=== PATIENT | female | born 1960 | race Caucasian/White ===

== ENCOUNTER 2018-04-06 09:26 | Emergency (ER) | payer BC ==
[~2018-04-06] VITALS: Ht 162.6 cm; Wt 87.8 kg
[~2018-04-06 09:26] MED LIST: MAXALT10 MG PO; NATURE-THROI81.25 MG PO; PROGESTERONE100 MG PO; RIZATRIPTAN10 MG PO; TREXIMET 85-1 TABLET
[2018-04-06 10:16] LABS: HEMOGLOBIN 13.6 G/DL (11.9-15.5); MCH 29.1 PG (29.0-34.0); MCV 85.5 FL (83-99); PLATELET COUNT 273 K/uL (156-360); RBC DIS.WIDTH-CV 12.8 % (11.8-14.6); RBC DIS.WIDTH-SD 39.8 % (39-53); RED BLOOD COUNT 4.68 M/uL (3.80-5.20); WHITE BLOOD COUNT 3.8 K/uL (4.1-10.2)
[2018-04-06 10:24] LABS: CHLORIDE 106 mEq/L (99-109); POTASSIUM 4.5 mEq/L (3.7-5.4); SODIUM 142 mEq/L (136-147)
[2018-04-06 10:26] LABS: GLUCOSE 99 mg/dL (70-99)
[2018-04-06 10:30] LABS: CREATININE 0.8 mg/dL (0.6-1.3); GFR ESTIMATE (CALCULATED) > 59 mL/min/
[2018-04-06 10:31] LABS: UREA NITROGEN (BUN) 14 mg/dL (9-23)
[2018-04-06 10:36] LABS: TROP-I INTERPRETATION NEGATIVE; TROPONIN-I < 0.01 ng/mL (0.0-0.30)
[2018-04-06 13:01] LABS: TROP-I INTERPRETATION NEGATIVE; TROPONIN-I < 0.01 ng/mL (0.0-0.30)
[2018-04-06 13:45] VITALS: BP 129/80
== END 2018-04-06 14:00 | disposition home or self-care (01) ==
LOC: EME 09:26
PROVIDERS: Emergency Medicine
DX: R07.89 Other chest pain (principal); E78.5 Hyperlipidemia, unspecified; J45.909 Unspecified asthma, uncomplicated; Z98.61 Coronary angioplasty status; Z88.5 Allergy status to narcotic agent; Z88.0 Allergy status to penicillin
CPT/HCPCS: 71045; 80048; 84484; 85027; 93005; 99281; 99285